=== PATIENT | male | born 1970 | race Caucasian/White ===

== ENCOUNTER 2016-08-11 21:39 | Emergency (ER) | payer MEDICAID ==
[~2016-08-11] VITALS: Ht 175.3 cm; Wt 102.1 kg
[2016-08-11 21:55] VITALS: BP 136/98
--- NOTE | 2016-08-11 22:09 | NUR ---
Patient being evaluated by physician.
--- NOTE | 2016-08-11 22:39 | NUR ---
AMBULATED TO ER BED 6
--- NOTE | 2016-08-11 22:42 | NUR ---
46 Y/O HERE W/C/O HIGH BLOOD AT HOME 153/93, DIZZINESS AND NEAL AND BLURRED VISION. PT TOOK BABY ASA. PT STATES WAS HOSPITALIZED 2 WKS AGO D/T HNT. PT ON MONITOR, VSS. ER MD MADE AWARE. MED HX: ACID REFLUX AND GASTRITIS
--- NOTE | 2016-08-11 23:57 | NUR ---
Patient discharged with v/s stable. Written and verbal after care instructions given and explained. Patient alert, oriented and verbalized understanding of instructions. Ambulatory with steady gait. All questions addressed prior to discharge. ID band removed. Patient advised to follow up with PMD THIS WK OR RETURN TO ER IF CONDITION WORSENS. Rx of FIORICET given. Patient educated on indication of medication including possible reaction and side effects. Opportunity to ask questions provided and answered.
[2016-08-11 23:58] VITALS: BP 126/79
== END 2016-08-11 23:57 | disposition home or self-care (01) ==
LOC: MED 21:40
DX: G44.209 Tension-type headache, unspecified, not intractable (principal)
CPT/HCPCS: 93005; 99283

== ENCOUNTER 2016-09-11 20:08 | Emergency (ER) | payer MEDICAID ==
[~2016-09-11] VITALS: Ht 175.3 cm; Wt 101.2 kg
[2016-09-11 20:37] VITALS: BP 140/85
--- NOTE | 2016-09-11 22:08 | NUR ---
PT IS 46/M BIB SELF WITH FATHER TO ED WITH C/O LT. ARM PAIN X 2 WKS. WENT TO URGENT CARE R/O THROMBOPLEBITIS. PT STATES MED HX. STROKE 2 WKS AGO ATMITTED IN [facility], HIGH CHOLESTEROL, GASTRITIS.DENIES N/V/D; SKIN IS PINK/WARM/DRY; AAOX4 WITH EVEN AND STEADY GAIT; LUNGS CLEAR BL; HR EVEN AND REGULAR; PT DENIES ANY FEVER, CP, SOB, OR COUGH AT THIS TIME; PATIENT STATES PAIN OF 7/10 AT THIS TIME; VSS; ER MD MADE AWARE OF PT STATUS.
[2016-09-11 22:57] VITALS: BP 125/79
== END 2016-09-11 22:57 | disposition home or self-care (01) ==
LOC: MED 20:08
DX: M79.602 Pain in left arm (principal); K21.9 Gastro-esophageal reflux disease without esophagitis; I10 Essential (primary) hypertension
CPT/HCPCS: 93971; 99284

== ENCOUNTER 2017-01-12 | Emergency (ER) | payer MEDICAID ==
[~2017-01-12] VITALS: Ht 175.3 cm; Wt 96.6 kg
[2017-01-12 00:10] VITALS: BP 172/117
--- NOTE | 2017-01-12 00:21 | NUR ---
AMBULATED TO ER BED 4
--- NOTE | 2017-01-12 00:24 | NUR ---
Patient being evaluated by physician at bedside.
[2017-01-12] MEDS ORDERED: MORPHINE SULFATE 2 MG/ML SYR IVP ONE ×2 (00:25→00:40)
[2017-01-12] MEDS ORDERED: NACL 0.9% 1,000 ML IV ONE (00:25)
--- NOTE | 2017-01-12 00:25 | NUR ---
46/M presents to ED for evaluation of severe abdominal pain s/p drinking alcohol and dinner tonight. Pt states "I was at co-workers and we were having dinner. I didn't feel well and I came straight here." Pt restless, agitiated, moaning, rubbing site, erythma, purple discoloration noted to epigastric area from pt applying pressure. Pt states "I have to push on it so it doesn't hurt that bad." Abd soft, hypoactive bowel sounds x 4 quadrants, c/o N/V and dry mouth. Pt c/o 10/10 pain, sharp, non radiating, constant, severe. Pt states "I drank 6 [employer]." Denies drug abuse. AOX4, very anxious and restless. Diaphoretic and pale. Placed on boat person, pulse oximetry and blood pressure monitoring. Pt sat up in bed, bed in lowest position.
[2017-01-12 00:37] LABS: BASOPHILS # (AUTO) 0.3 K/uL (0.00-0.22); BASOPHILS % (AUTO) 2.2 % (0.0-2.0); EOSINOPHILS # (AUTO) 0.2 K/uL (0-0.4); EOSINOPHILS % (AUTO) 1.4 % (0.0-4.0); HEMATOCRIT 46.5 % (36-52); HEMOGLOBIN 14.7 g/dL (12.0-18.0); LYMPHOCYTES # (AUTO) 1.2 K/uL (2.0-11.5); MEAN CORPUSCULAR HEMOGLOBIN 26 pg (27-31); MEAN CORPUSCULAR HGB CONC 32 g/dL (33-37); MEAN CORPUSCULAR VOLUME 81 fL (80-94); MONOCYTES # (AUTO) 0.9 K/uL (0.8-1.0); NEUTROPHILS # (AUTO) 10.7 K/uL (1.8-7.7); NEUTROPHILS % (AUTO) 80.2 % (42.2-75.2); PLATELET COUNT (AUTO) 302 K/uL (140-450); RED BLOOD CELL COUNT(AUTO) 5.72 MIL/uL (4.20-6.10); WHITE BLOOD COUNT (AUTO) 13.3 K/uL (4.8-10.8)
[2017-01-12] MEDS ORDERED: ONDANSETRON 4 MG/2 ML VIAL IVP ONE (00:40)
[2017-01-12] MEDS ORDERED: LORazepam 2 MG/ML VIAL IVP ONE (00:40)
[2017-01-12] MEDS ORDERED: LORazepam 2 MG/ML VIAL ONE (00:43)
[2017-01-12 00:46] LABS: LYMPHOCYTES % (AUTO) 9.2 % (20.5-51.1)
[2017-01-12 00:47] LABS: ANION GAP 23.6 (8-16); CARBON DIOXIDE 19.3 mmol/L (21-32); CHLORIDE 108 mmol/L (98-107); CREATININE 1.7 mg/dL (0.7-1.3); GFR ARICAN-AMERICAN 56 mL/min (>90); GLUCOSE 103 mg/dL (74-106); POTASSIUM 3.9 mmol/L (3.5-5.1); SODIUM SERUM 147 mmol/L (136-145); UREA NITROGEN, BLOOD 11 mg/dL (7-18)
[2017-01-12 00:54] LABS: ACETAMINOPHEN < 0.5 ug/ml (10-30); ALBUMIN 4.5 g/dL (3.4-5.0); ASPARTATE AMINOTRANSFERASE 26 U/L (15-37); SALICYLATE < 2.8 mg/dL (2.8-20.0); TOTAL BILIRUBIN 0.5 mg/dL (0.0-1.0)
--- NOTE | 2017-01-12 00:54 | NUR ---
Pt to be taken to CT via gurney.
--- NOTE | 2017-01-12 01:11 | NUR ---
Pt returned from CT scan.
--- NOTE | 2017-01-12 01:45 | NUR ---
Pt calm and relaxed at this time. Pt states "I feel whole a lot better now." Dr. Hewitt made aware.
[2017-01-12] MEDS ORDERED: PANTOPRAZOLE 40 MG INJ VIAL IVP ONE (01:50)
--- NOTE | 2017-01-12 02:03 | NUR ---
Pt ambulated to restroom with steady gait. Pt states "I can call one of my girlfriends to pick me up." Pt advised he cannot drive.
[2017-01-12 02:04] LABS: BARBITURATE, URINE NEG. ng/ml (NEG <=200); BENZODIAZEPINE, URINE NEG. ng/mL (NEG <=200); CANNABINOID, URINE NEG. ng/mL (NEG <=50); COCAINE, URINE NEG. ng/mL (NEG <=300); OPIATE, URINE POS. ng/mL (NEG <=2000); PHENCYCLIDINE SCREEN,URINE NEG. ng/mL (NEG <=25)
--- NOTE | 2017-01-12 02:22 | NUR ---
Dr. Hewitt re-evaluating patient at bedside. Pt states "I feel a while lot better."
--- NOTE | 2017-01-12 02:27 | NUR ---
IV removed from left and right hands, catheter intact and site benign. Applied folded 4x4 gauze and tape to stop bleeding.
[2017-01-12 02:50] VITALS: BP 143/100
--- NOTE | 2017-01-12 02:50 | NUR ---
Patient discharged with v/s stable. Written and verbal after care instructions given and explained. Patient alert, oriented and verbalized understanding of instructions. Ambulatory with steady gait. All questions addressed prior to discharge. ID band removed. Patient advised to follow up with PMD. Rx of Xanax 0.5mg given. Patient educated on indication of medication including possible reaction and side effects. Opportunity to ask questions provided and answered.
== END 2017-01-12 02:50 | disposition home or self-care (01) ==
LOC: MED
DX: R10.13 Epigastric pain (principal); R06.02 Shortness of breath; R03.0 Elevated blood-pressure reading, without diagnosis of hypertension; K21.9 Gastro-esophageal reflux disease without esophagitis; I10 Essential (primary) hypertension
CPT/HCPCS: 36415; 74176; 80053; 80305; 83690; 85025; 93005; 96361; 96374; 96375; 99285; C9113; G0480; G0482; J2060; J2270; J2405